=== PATIENT | female | born 1985 | race Caucasian/White ===

== ENCOUNTER → 2018-09-27 21:42 | Emergency (ER) | payer SELFPAY ==
[~2018-09-27 21:42] MED LIST: Albuterol 2.5 MG/3 ML NEB.SOL* (0.083%) INH ONE; Albuterol HFA INHALER* 8 gm MDI INH ONE; Albuterol/Ipratropium NEB.SOL* Albuterol 2.5 MG/Ipratropium 0.5 MG 3 ML INH ONE; predniSONE TAB* 20 MG PO ONE
--- NOTE | 2018-09-27 22:05 | ED ---
Asthma - HPI Summary HPI Summary: Patient with history of asthma complains of acute asthma attack, SOB starting today. Patient states she is from out of town, ran out of her inhaler last night. Denies fever, cough, sore throat, CP, N/V/D, abdominal pain, change in urine, change in BM. Medical history is asthma. - History of Current Complaint Chief Complaint: EDShortnessOfBreath Stated Complaint: ASTHMA ATTACK PER PTC Time Seen by Provider: 09/27/18 21:59 Hx Obtained From: Patient Onset/Duration: Gradual Onset, Lasting Hours Timing: Constant Initial Severity: Mild Current Severity: Moderate Pain Intensity: 0 Pain Scale Used: 0-10 Numeric Location/Character: Wheezing Aggravating Symptoms: Exertion Alleviating Symptoms: Nothing Associated Signs and Symptoms: Positive: Shortness of Breath - Allergy/Home Medications Allergies/Adverse Reactions: Allergies Allergy/AdvReac Type Severity Reaction Status Date / Time No Known Allergies Allergy Verified 09/27/18 21:46 PMH/Surg Hx/FS Hx/Imm Hx Endocrine/Hematology History: Denies: Hx Anticoagulant Therapy Cardiovascular History: Denies: Hx Pacemaker/ICD History: Denies: Hx Dialysis Sensory History: Denies: Hx Eye Prosthesis Opthamlomology History: Denies: Hx Legally Blind EENT History: Denies: Hx Deafness Neurological History: Denies: Hx Dementia Psychiatric History: Denies: Hx Autism Infectious Disease History: No Infectious Disease History: Denies: Traveled Outside the [place] in Last 30 Days - Family History Known Family History: Positive: Non-Contributory - Social History Alcohol Use: Occasionally Hx Substance Use: No Hx Tobacco Use: No Do You Chew or Dip Tobacco: No Review of Systems Constitutional: Negative Eyes: Negative ENT: Negative Cardiovascular: Negative Positive: Shortness Of Breath Gastrointestinal: Negative Genitourinary: Negative Musculoskeletal: Negative Skin: Negative Neurological: Negative Psychological: Normal All Other Systems Reviewed And Are Negative: Yes Physical Exam - Summary Physical Exam Summary: Wheezes bilaterally. Abdomen soft nontender. RRR. Triage Information Reviewed: Yes Vital Signs On Initial Exam: Initial Vitals Temp Pulse Resp BP Pulse Ox 97.6 F 67 19 136/80 97 09/27/18 21:45 09/27/18 21:45 09/27/18 21:45 09/27/18 21:45 09/27/18 21:45 Vital Signs Reviewed: Yes Appearance: Positive: Well-Appearing Skin: Positive: Warm Head/Face: Positive: Normal Head/Face Inspection Eyes: Positive: Normal ENT: Positive: Normal ENT inspection Neck: Positive: Supple Respiratory/Lung Sounds: Positive: Wheezes Cardiovascular: Positive: Normal Abdomen Description: Positive: Nontender Musculoskeletal: Positive: Normal Neurological: Positive: Normal Psychiatric: Positive: Normal AVPU Assessment: Alert - Chrisman Coma Scale Best Eye Response: 4 - Spontaneous Best Motor Response: 6 - Obeys Commands Best Verbal Response: 5 - Oriented Coma Scale Total: 15 Diagnostics - Vital Signs Vital Signs Temp Pulse Resp BP Pulse Ox 09/27/18 21:45 97.6 F 67 19 136/80 97 - Laboratory Lab Statement: Any lab studies that have been ordered have been reviewed, and results considered in the medical decision making process. Asthma Course/Dx - Course Course Of Treatment: Patient with history of asthma complains of acute asthma attack, SOB starting today. Patient states she is from out of town, ran out of her inhaler last night. Denies fever, cough, sore throat, CP, N/V/D, abdominal pain, change in urine, change in BM. Medical history is asthma. Physical exam: Wheezes bilaterally. Abdomen soft nontender. RRR. Vital signs within normal limits. No work of breathing noted. Patient's symptoms improved after DuoNeb and albuterol treatment 1. Patient administered and is on 60 mg by mouth here in the ED. Provided with inhaler here in the ED. Rx for prednisone 40 mg 5 days. - Diagnoses Provider Diagnoses: Acute asthma exacerbation Discharge - Sign-Out/Discharge Documenting (check all that apply): Patient Departure Patient Received Moderate/Deep Sedation with Procedure: No - Discharge Plan Condition: Stable Disposition: HOME Patient Education Materials: Bronchospasm (ED) Forms: *Work Release Referrals: No Primary Care Phys,NOPCP [Primary Care Provider] - Additional Instructions: Use inhaler as directed. Take prednisone as directed. Follow-up with primary care. Return to the ED for any new or worsening symptoms. - Billing Disposition and Condition Condition: STABLE Disposition: Home
[2018-09-27 23:48] VITALS: BP 108/64
== END | disposition home or self-care (01) ==
LOC: ED 21:42
DX: J45.901 Unspecified asthma with (acute) exacerbation (principal); R06.02 Shortness of breath
CPT/HCPCS: 99284; A9270-GY; J7512

== ENCOUNTER 2018-10-31 15:41 | Emergency (ER) | payer SELFPAY ==
[2018-10-31] MEDS ORDERED: Albuterol/Ipratropium NEB.SOL* Albuterol 2.5 MG/Ipratropium 0.5 MG 3 ML INH ONE (15:54)
[2018-10-31] MEDS ORDERED: Albuterol/Ipratropium NEB.SOL* Albuterol 2.5 MG/Ipratropium 0.5 MG 3 ML ONE (15:55)
--- NOTE | 2018-10-31 15:57 | ED ---
Asthma - HPI Summary HPI Summary: This pt is a 32 y/o female presenting to [facility] c/o asthma attack with SOB worsening over the past 1 hour. Pt reports she has hx of asthma and she ran out of her mediations 2 days ago. She notes she has had cold symptoms since the beginning of the week (today is Friday). Additionally reports a cough. Pt is an every day smoker. She does not have a PCP. Pt notes she is not from the area. - History of Current Complaint Chief Complaint: EDAsthma Stated Complaint: ASTHMA ATTACK PER PT Time Seen by Provider: 10/31/18 15:50 Hx Obtained From: Patient Onset/Duration: Lasting Days, Still Present, Worse Since - 1 hour ago Timing: Days - 2 Current Severity: Moderate Pain Intensity: 3 Location/Character: Cough (Nonproductive) Aggravating Symptoms: Smoke Alleviating Symptoms: Nothing Associated Signs and Symptoms: Positive: Shortness of Breath, Other - POSITIVE: cold symptoms, cough - Allergy/Home Medications Allergies/Adverse Reactions: Allergies Allergy/AdvReac Type Severity Reaction Status Date / Time No Known Allergies Allergy Verified 10/31/18 15:46 Home Medications: Home Medications Albuterol HFA INHALER* [Ventolin HFA Inhaler*] 1 puff INH Q4H PRN 10/31/18 [ History Confirmed 10/31/18] PMH/Surg Hx/FS Hx/Imm Hx Endocrine/Hematology History: Denies: Hx Anticoagulant Therapy Cardiovascular History: Denies: Hx Pacemaker/ICD Respiratory History: Reports: Hx Asthma History: Denies: Hx Dialysis Sensory History: Denies: Hx Eye Prosthesis, Hx Legally Blind, Hx Deafness Opthamlomology History: Denies: Hx Eye Prosthesis, Hx Legally Blind Neurological History: Denies: Hx Dementia Psychiatric History: Denies: Hx Autism Infectious Disease History: No Infectious Disease History: Denies: Traveled Outside the [place] in Last 30 Days - Family History Known Family History: Negative: Cardiac Disease, Hypertension, Diabetes - Social History Alcohol Use: Occasionally Hx Substance Use: No Substance Use Type: Reports: None Hx Tobacco Use: No Smoking Status (MU): Heavy Every Day Tobacco Smoker Review of Systems Negative: Fever, Chills ENT: Other - POSITIVE: cold symptoms Positive: Shortness Of Breath, Cough Musculoskeletal: Negative Skin: Negative All Other Systems Reviewed And Are Negative: Yes Physical Exam - Summary Physical Exam Summary: Appearance: The patient is well-nourished in no acute pain. Skin: The skin is warm and dry and skin color reflects adequate perfusion. HEENT: The head is normocephalic and atraumatic. The pupils are equal and reactive. The conjunctivae are clear and without drainage. Nares are patent and without drainage. Mouth reveals moist mucous membranes and the throat is without erythema and exudate. The external ears are intact. The ear canals are patent and without drainage. The tympanic membranes are intact. Neck: the neck is supple with full range of motion and non-tender. There are no carotid bruits. There is no neck vein distension. Respiratory: Chest is non-tender. Respiratory wheezes. Cardiovascular: Heart is regular rate and rhythm. There is no murmur or rub auscultated. There is no peripheral edema and pulses are symmetrical and equal. Abdomen: The abdomen is soft and non-tender. There are normal bowel sounds heard in all four quadrants and there is no organomegaly palpated. Musculoskeletal: There is no back tenderness noted. Extremities are non-tender with full range of motion. There is good capillary refill. There is no peripheral edema or calf tenderness elicited. Neurological: Patient is alert and oriented to person, place and time. The patient has symmetrical motor strength in all four extremities. Psychiatric: The patient has an appropriate affect and does not exhibit any anxiety or depression. Triage Information Reviewed: Yes Vital Signs On Initial Exam: Initial Vitals Temp Pulse Resp BP Pulse Ox 97.4 F 71 20 104/64 99 10/31/18 15:42 10/31/18 15:42 10/31/18 15:42 10/31/18 15:42 10/31/18 15:42 Vital Signs Reviewed: Yes Diagnostics - Vital Signs Vital Signs Temp Pulse Resp BP Pulse Ox 10/31/18 15:42 97.4 F 71 20 104/64 99 - Laboratory Lab Statement: Any lab studies that have been ordered have been reviewed, and results considered in the medical decision making process. Re-Evaluation - Re-Evaluation First Eval Re-Evaluation Time: 16:40 Comment: Pt is feeling better. She will be discharged home with medications. Asthma Course/Dx - Course Course Of Treatment: Ms. Hamm is visiting from out of town and her albuterol inhaler is out. She's been having URI kind of symptoms with a mild cough and congestion and using the inhaler frequently. She was nontoxic in appearance with stable vitals and mild wheezes. She was given a DuoNeb and felt much improved I will discharge her with an inhaler and a prescription for Robitussin with codeine. - Diagnoses Provider Diagnoses: Asthma exacerbation Discharge - Sign-Out/Discharge Documenting (check all that apply): Patient Departure - Discharge home Patient Received Moderate/Deep Sedation with Procedure: No - Discharge Plan Condition: Stable Disposition: HOME Prescriptions: Codeine Phosphate/Guaifenesin [Guaiatussin AC Liquid] 5 ml PO Q4HR #120 ml MDD 30 cc Patient Education Materials: Asthma (ED) Referrals: [facility] [Outside] [facility]YS[facility]IAN REFERRAL [Outside] Additional Instructions: Follow up with [facility] in 2-3 days. You can also establish a primary care provider through [facility] Physician Referral. RETURN TO THE ED FOR ANY WORSENING OR NEW SYMPTOMS. - Billing Disposition and Condition Condition: STABLE Disposition: Home - Attestation Statements Document Initiated by Katelynn: Yes Documenting Scribe: Vivien Siu Provider For Whom Katelynn is Documenting (Include Credential): Rudy Small MD Scribe Attestation: Vivien Vásquez, scribed for Rudy Small MD on 11/01/18 at 1315. Scribe Documentation Reviewed: Yes Provider Attestation: The documentation as recorded by the Vivien smith accurately reflects the service I personally performed and the decisions made by me, Rudy Small MD Status of Scribe Document: Viewed
[2018-10-31] MEDS ORDERED: Albuterol HFA INHALER* 8 gm MDI INH ONE (16:40)
[2018-10-31 16:59] VITALS: BP 98/61
== END 2018-10-31 16:58 | disposition home or self-care (01) ==
LOC: ED 15:41
DX: J45.901 Unspecified asthma with (acute) exacerbation (principal); F17.210 Nicotine dependence, cigarettes, uncomplicated
CPT/HCPCS: 99282; A9270-GY